=== PATIENT | male | born 1980 | race Caucasian/White ===

== ENCOUNTER 2018-07-03 16:02 | Emergency (ER) | payer BC, SELFPAY ==
[2018-07-03 16:06] VITALS: BP 138/79; PULSE 74; RESP 16; TEMP 36.7; O2SAT 100
--- NOTE | 2018-07-03 16:37 | NUR.NOTE ---
Nursing Note: [id number] spoke with Becca Mackenzie [facility] and reported the dog bite. Faxed the animal bite report form to the [facility] Clerk. Angy Fields [phone].
--- NOTE | 2018-07-03 17:10 | W.ED.GENAD ---
Discharge Plan Disposition Patient Disposition: HOME Condition: Stable Discharge Details Chief Complaint: AnimalBite Clinical Impression: Laceration of finger of right hand Primary Care Provider: WOJCIECH DAMIAN ED Provider: Harry Pastor Home Meds and New Rx's Prescriptions: New amoxicillin-pot clavulanate 875-125 mg tablet 1 tab PO Q12H Qty: 6 RF: 0 Discharge Instructions Instructions: Finger Laceration (ED) Additional Instructions: Return to emergency department immediately for any signs of infection. Otherwise keep original dressing on for the first 24-48 hours then perform dressing changes as needed. Keep wound clean and dry and you may mildly clean with gentle soap and water. Referrals: [facility] Emergency Dept. [Outside] (follow up with in 12 days for suture removal) Discharge Data Discharge Date/Time-TO BE ENTERED AT DEPARTURE: 07/03/18 17:42 Medical Decision Making Patient presenting the emergency department for chief complaint of right index finger injury. Patient reports that he was attempting to break up a fight between his dog and another dog when he pulled on his dog his dog turned around and bite him on the index finger. Patient states that his dog is up-to-date on immunizations. Patient states that it has been greater than 10 years since his last tetanus. Patient has a 4 cm laceration to right index finger. There is two-point discrimination, appropriate cap refill, normal movement and function of the finger. Patient does state some mild tingling distal to the injury but does still have intact sensation. Please see procedure note for wound repair. Tetanus was ordered. Given animal bite patient was placed on Augmentin for 3 days. Patient to return in 12 days for suture removal. Return precautions discussed. After discussion of diagnosis and plan of care patient has no further needs, questions, or concerns and states clear understanding to return to the emergency department for any worsening symptoms. HPI General Mode of arrival: ambulatory. Date/Time Provider Initiated Documentation: 07/03/18 16:12. Limitations to Documentation: no limitations. Information obtained by: patient and RN notes reviewed. History of Present Illness 38 year old M presents to the emergency department with the chief complaint of dog bite to right hand, described as mild, with intensity rated at 4. Quality is described as aching, and is localized to the right and upper extremity. Patient started experiencing this minute(s) (30) and it has been constant. Patient did receive the following treatments prior to arrival, none Related Data Home Medications Medication Instructions Recorded Confirmed amoxicillin-pot clavulanate 1 tab PO Q12H #6 tab 07/03/18 Previous Rx's Medication Instructions Recorded amoxicillin-pot clavulanate 1 tab PO Q12H #6 tab 07/03/18 Allergies Allergy/AdvReac Type Severity Reaction Status Date / Time No Known Allergies Allergy Unverified 07/03/18 16:14 General Stated Complaint: AnimalBite JAY: 4 Review of Systems Cardiovascular Denies syncope and Denies lightheadedness Musculoskeletal Denies deformity, Denies limited range of motion, Denies numbness and Reports tingling Integumentary/Breasts Reports as per HPI Neurologic Denies syncope, Denies numbness, Reports tingling and Denies paresthesias [facility] Medical History Right wrist fracture (Acute) Social History Smoking/Tobacco Use Status: Never Substance use type: does not use Do you feel safe at home: Yes Do you feel safe in your relationship?: Yes Exam Const General: cooperative and no acute distress Orientation: alert, awake and oriented x3 Limitations: mental status not altered Resp Effort & Inspection: normal respiratory effort and able to speak in complete sentences Cardio Rate: regular rate Rhythm: regular rhythm Neuro General: alert and awake Extrem Right upper extremity: hand Details: neuromotor exam normal Details: fingers 2-5 ABduction normal, neurosensory exam normal Details: radial nerve sensory function normal, ulnar nerve sensory function normal and median nerve sensory function normal, tendon exam normal, vascular exam Details: radial pulse present and normal capillary refill, normal ROM of fingers, swelling Location: of the 4th digit and laceration (index finger 4cm) Course Vital Signs Temperature 36.7 C 07/03/18 16:06 Pulse 74 07/03/18 16:06 Respiratory Rate 16 07/03/18 16:06 Blood Pressure 138/79 07/03/18 16:06 Pulse Oximetry 100 07/03/18 16:06 Temperature 36.7 C 07/03/18 16:06 Temperature Source Skin 07/03/18 16:06 Pulse 74 07/03/18 16:06 Respiratory Rate 16 07/03/18 16:06 Respiratory Effort 07/03/18 16:11 Blood Pressure 138/79 07/03/18 16:06 Blood Pressure Position Sitting 07/03/18 16:06 Pulse Oximetry 100 07/03/18 16:06 Oxygen Delivery Method Room Air 07/03/18 16:06 Oxygen Flow Rate 0 07/03/18 16:06 Procedures Laceration Right ring finger: Site: hand Side (If applicable): right Size (cm): 4 Description: flap Depth: simple, single layer Local Anesthetic: Lidocaine 2% Amount of anesthesia used (mL): 5 Pre-repair: wound explored, irrigated extensively and deep structures intact Skin layer closed with: nylon Size (cm): 4-0 Number of sutures: 4 Technique: simple, interrupted
[2018-07-03] MEDS: Amoxicillin 875/Clav. 125 TAB PO (17:22)
== END 2018-07-03 17:42 | disposition home or self-care (01) ==
LOC: ER 18:12
PROVIDERS: Emergency Provider Nurse Practitioner Family; PCP Family Medicine
DX: S61.250A Open bite of right index finger without damage to nail, initial encounter (principal); W54.0XXA Bitten by dog, initial encounter
CPT/HCPCS: 12002; 90471

== ENCOUNTER 2018-07-21 14:12 | Emergency (ER) | payer BC, SELFPAY ==
[2018-07-21 14:15] VITALS: BP 132/89; PULSE 69; RESP 18; TEMP 37.7; O2SAT 99
--- NOTE | 2018-07-21 14:21 | W.ED.GENAD ---
Discharge Plan Disposition Patient Disposition: HOME Discharge Details Chief Complaint: SutureRem Clinical Impression: Healing wound Primary Care Provider: WOJCIECH DAMIAN ED Provider: Guillaume Giordano Discharge Instructions Instructions: Acute Wound Care (ED) Additional Instructions: Return to the ER for wound assessment in 3-4 days. Keep wound protected and change sterile dressing daily. Return to the ER for any worsening or new concerning symptoms. Referrals: WOJCIECH DAMIAN [Primary Care Provider] - Discharge Data Discharge Date/Time-TO BE ENTERED AT DEPARTURE: 07/21/18 14:32 Medical Decision Making Right 4th digit dogbite laceration. distal suture removed. Two more proximal sutures to remain intact for 3-4 more days. HPI General Mode of arrival: ambulatory. Date/Time Provider Initiated Documentation: 07/21/18 14:21. Limitations to Documentation: no limitations. Information obtained by: patient. HPI Narrative: 38yo m here with suture removal. Patient bit by dog and had sutures placed rt 4th digit 14 days ago. No fever. No signs of infection. No weakness or numbness. Wound healing well. Related Data Allergies Allergy/AdvReac Type Severity Reaction Status Date / Time No Known Allergies Allergy Unverified 07/21/18 14:19 General Stated Complaint: SutureRem JAY: 5 Review of Systems Constitutional Denies fever(s) Integumentary/Breasts Reports as per HPI [facility] Social History Smoking/Tobacco Use Status: Never Substance use type: does not use Do you feel safe at home: Yes Do you feel safe in your relationship?: Yes Exam Skin General skin exam: no erythema and no induration Wounds: wounds noted (bite wound right 4th digit healing. Proximal wound not completely healed) Course Vital Signs Temperature 37.7 C H 07/21/18 14:15 Pulse 69 07/21/18 14:15 Respiratory Rate 18 07/21/18 14:15 Blood Pressure 132/89 07/21/18 14:15 Pulse Oximetry 99 07/21/18 14:15 Temperature 37.7 C H 07/21/18 14:15 Temperature Source Skin 07/21/18 14:15 Pulse 69 07/21/18 14:15 Respiratory Rate 18 07/21/18 14:15 Blood Pressure 132/89 07/21/18 14:15 Pulse Oximetry 99 07/21/18 14:15 Oxygen Delivery Method Room Air 07/21/18 14:15 Oxygen Flow Rate 0 07/21/18 14:15 Pain Level 0 07/21/18 14:15
--- NOTE | 2018-07-21 14:28 | ED.GENADUL_ITS ---
Discharge Plan Disposition Patient Disposition: HOME Discharge Details Chief Complaint: SutureRem Clinical Impression: Healing wound Primary Care Provider: WOJCIECH DAMIAN ED Provider: Guillaume Giordano Discharge Instructions Instructions: Acute Wound Care (ED) Additional Instructions: Return to the ER for wound assessment in 3-4 days. Keep wound protected and change sterile dressing daily. Return to the ER for any worsening or new concerning symptoms. Referrals: WOJCIECH DAMIAN [Primary Care Provider] - Discharge Data Discharge Date/Time-TO BE ENTERED AT DEPARTURE: 07/21/18 14:32 Medical Decision Making Right 4th digit dogbite laceration. distal suture removed. Two more proximal sutures to remain intact for 3-4 more days. HPI General Mode of arrival: ambulatory . Date/Time Provider Initiated Documentation: 07/21/18 14:21 . Limitations to Documentation: no limitations . Information obtained by: patient . HPI Narrative: 38yo m here with suture removal. Patient bit by dog and had sutures placed rt 4th digit 14 days ago. No fever. No signs of infection. No weakness or numbness. Wound healing well. Related Data Allergies Allergy/AdvReac Type Severity Reaction Status Date / Time No Known Allergies Allergy Unverified 07/21/18 14:19 General Stated Complaint: SutureRem JAY: 5 Review of Systems Constitutional Denies fever(s) Integumentary/Breasts Reports as per HPI [facility] Social History Smoking/Tobacco Use Status: Never Substance use type: does not use Do you feel safe at home: Yes Do you feel safe in your relationship?: Yes Exam Skin General skin exam: no erythema and no induration Wounds: wounds noted (bite wound right 4th digit healing. Proximal wound not completely healed) Course Vital Signs Temperature 37.7 C H 07/21/18 14:15 Pulse 69 07/21/18 14:15 Respiratory Rate 18 07/21/18 14:15 Blood Pressure 132/89 07/21/18 14:15 Pulse Oximetry 99 07/21/18 14:15 Temperature 37.7 C H 07/21/18 14:15 Temperature Source Skin 07/21/18 14:15 Pulse 69 07/21/18 14:15 Respiratory Rate 18 07/21/18 14:15 Blood Pressure 132/89 07/21/18 14:15 Pulse Oximetry 99 07/21/18 14:15 Oxygen Delivery Method Room Air 07/21/18 14:15 Oxygen Flow Rate 0 07/21/18 14:15 Pain Level 0 07/21/18 14:15
--- NOTE | 2018-07-21 14:29 | NUR.NOTE ---
patient removed 1 suture and to follow up in 2 days Nursing Note:
== END 2018-07-21 14:32 | disposition home or self-care (01) ==
LOC: ER 14:45
PROVIDERS: Emergency Provider Student in an Organized Health Care Education/Training Program; PCP Family Medicine
DX: S61.214D Laceration without foreign body of right ring finger without damage to nail, subsequent encounter (principal); W54.0XXD Bitten by dog, subsequent encounter; Z48.02 Encounter for removal of sutures

== ENCOUNTER 2018-07-28 08:44 | Emergency (ER) | payer BC, SELFPAY ==
[2018-07-28 08:51] VITALS: BP 138/97; PULSE 62; RESP 16; TEMP 36.4; O2SAT 98
--- NOTE | 2018-07-28 08:57 | W.ED.GENAD ---
Discharge Plan Disposition Patient Disposition: HOME Condition: Stable Discharge Details Chief Complaint: SutureRem Clinical Impression: Visit for suture removal Primary Care Provider: WOJCIECH DAMIAN ED Provider: Melida Giordano Discharge Instructions Instructions: Stitches Removal (ED) Additional Instructions: Please return immediately to the emergency department if you develop any new or worsening symptoms or if you become otherwise concerned. It is extremely important that you make an appointment to be seen in follow-up for this visit by your primary care doctor. Referrals: WOJCIECH DAMIAN [Primary Care Provider] - Medical Decision Making David Murrell is a 38-year-old man without history of medical problems who presented to the emergency department for suture repair after laceration to fourth digit on 07/04/18. On exam patient is well and nontoxic appearing. Wound is healing well without evidence of infection. Sutures removed by nursing after my examination. I had a lengthy discussion with the patient regarding return to emergency department precautions and importance of outpatient follow-up. HPI General Mode of arrival: ambulatory. Date/Time Provider Initiated Documentation: 07/28/18 08:57. Limitations to Documentation: no limitations. Information obtained by: patient, RN notes reviewed and old records reviewed. HPI Narrative: David Murrell is a 38 y/o man without history of medical problems presenting to the emergency department for suture removal. Patient reports that he was seen here 07/04/18 after sustaining dog bite to his right fourth digit. Bite was from his dog. Laceration was repaired. Patient reports that he return for suture removal on 07/21/18, at which time 1 sutures removed, but there was concern for mild dehiscence, and 3 sutures were left in place at that time. Patient now returning for suture removal. He reports no drainage, no redness, no pain. He has had no fevers, vomiting or other symptoms and feels very well and in his usual state of health. Related Data Allergies Allergy/AdvReac Type Severity Reaction Status Date / Time No Known Allergies Allergy Unverified 07/21/18 14:19 General Stated Complaint: SutureRem JAY: 5 Review of Systems Review of Systems Constitutional: denies fevers Eyes: denies eye pain ENT: denies facial pain, dental pain, sore throat Cardiovascular: denies chest pain GI: denies abdominal pain, vomiting, diarrhea : denies flank pain MSK: denies back pain, neck pain, arthralgias Skin: denies rash Neuro: denies headaches [facility] Medical History Right wrist fracture (Acute) Social History Smoking/Tobacco Use Status: Never Substance use type: does not use Do you feel safe at home: Yes Do you feel safe in your relationship?: Yes Exam Narrative Exam Narrative: Constitutional: well and [id number], pleasant, conversing normally HENT: head atraumatic/normocephalic/normal inspection, mucous membranes moist Eyes: conjunctiva normal, sclera normal, pupils 3mm b/l Neck: no stridor, normal ROM, trachea midline Skin: warm, dry, normal color, no rash Neuro: alert, not altered, grossly non-focal, normal tone Ext: Right hand with healing laceration to base of fourth digit, no erythema, no drainage, no fluctuance, full range of motion of the digits, [address] without wound dehiscence Psych: normal mood, normal affect, normal behavior Course Vital Signs Temperature 36.4 C L 07/28/18 08:51 Pulse 62 07/28/18 08:51 Respiratory Rate 16 07/28/18 08:51 Blood Pressure 138/97 H 07/28/18 08:51 Pulse Oximetry 98 07/28/18 08:51 Temperature 36.4 C L 07/28/18 08:51 Temperature Source Skin 07/28/18 08:51 Pulse 62 07/28/18 08:51 Respiratory Rate 16 07/28/18 08:51 Blood Pressure 138/97 H 07/28/18 08:51 Blood Pressure Position Sitting 07/28/18 08:51 Pulse Oximetry 98 07/28/18 08:51
[2018-07-28 09:11] VITALS: BP 138/97; PULSE 62; RESP 16; TEMP 36.4; O2SAT 98
== END 2018-07-28 09:10 | disposition home or self-care (01) ==
PROVIDERS: Emergency Provider Student in an Organized Health Care Education/Training Program; PCP Family Medicine
DX: S61.250D Open bite of right index finger without damage to nail, subsequent encounter (principal); W54.0XXD Bitten by dog, subsequent encounter; Z48.02 Encounter for removal of sutures